=== PATIENT | female | born 1990 | race Asian ===

== ENCOUNTER 2020-07-11 16:54 | Emergency (ER) | payer OTHER ==
[~2020-07-11] VITALS: Ht 167.6 cm; Wt 102.1 kg
[2020-07-11 18:36] LABS: PLATELET COUNT 243 K/uL (152-353)
[2020-07-11 19:28] LABS: POTASSIUM 4.1 mmol/L (3.6-5.2)
[2020-07-11 19:55] VITALS: BP 122/74; TEMP 96.8
== END 2020-07-11 19:55 | disposition home or self-care (01) ==
LOC: ED 16:54
PROVIDERS: Family Medicine
DX: R10.84 Generalized abdominal pain (principal); N97.8 Female infertility of other origin; Z98.890 Other specified postprocedural states
CPT/HCPCS: 36415; 80053; 81000; 81025; 85027; 99283